=== PATIENT | male | born 1975 | race Two or more races ===

== ENCOUNTER 2022-11-24 21:08 | Emergency (ER) | payer OTHER ==
[~2022-11-24] VITALS: Ht 162.6 cm; Wt 76.5 kg
[2022-11-24 21:30] VITALS: BP 135/65
== END 2022-11-24 22:16 | disposition left against medical advice (07) ==
LOC: ER 21:36
DX: Z53.21 Procedure and treatment not carried out due to patient leaving prior to being seen by health care provider (principal)